=== PATIENT | male | born 1985 | race Caucasian/White ===

== ENCOUNTER 2019-10-15 20:35 | Emergency (ER) | payer OTHER ==
[~2019-10-15] VITALS: Ht 177.8 cm; Wt 104.3 kg
[~2019-10-15 20:35] MED LIST: IBUPROFEN 800800 MG PO; NOHOMEMEDICATIONS; ZOFRAN4 MG PO
[2019-10-15] MEDS ORDERED: NORCO 5-325 TA1 EAC1 PO (21:09)
[2019-10-15] MEDS ORDERED: AUGMENTIN 875-1 EACH PO (21:09)
[2019-10-15 21:15] VITALS: BP 149/84
== END 2019-10-15 21:15 | disposition home or self-care (01) ==
LOC: M.ERS 20:35
DX: K02.9 Dental caries, unspecified (principal); H66.92 Otitis media, unspecified, left ear